=== PATIENT | male | born 1945 | race Caucasian/White ===

== ENCOUNTER 2020-10-22 17:02 | Emergency (ER) | payer MEDICARE, OTHER, SELFPAY ==
[2020-10-22 17:04] VITALS: BP 182/89; PULSE 69; RESP 15; TEMP 36.4; O2SAT 96; BMI 24.3
--- NOTE | 2020-10-22 20:18 | ED.WOUNDLAC ---
HPI - Wound/Laceration General Chief Complaint: Wound/Laceration Stated Complaint: wound on left hand/wrist from chainsaw Time Seen by Provider: 10/22/20 18:01 Source: patient Mode of arrival: Ambulatory Limitations: no limitations History of Present Illness HPI narrative: Patient is a 74-year-old right-handed male who presents with left hand laceration. He was using a chainsaw today chopping firewood when he cut his left hand. He is not on any anti-platelet or anticoagulation medication. He has a very small cut on the left palmar hand. He denies numbness tingling or weakness. Unsure of his last tetanus. Onset (ago): hour(s) Related Data Allergies Allergy/AdvReac Type Severity Reaction Status Date / Time Sulfa (Sulfonamide Allergy Intermediate RASH Verified 10/22/20 17:04 Antibiotics) Review of Systems Review of Systems Narrative: GENERAL: Denies chills,fever HEENT: Denies throat pain RESPIRATORY: Denies dyspnea, cough, wheezing CARDIOVASCULAR: Denies chest pain, palpitations GASTROINTESTINAL: Denies nausea, vomiting MUSCULOSKELETAL: Denies extremity pain, injury SKIN: See HPI NEUROLOGIC: Denies weakness, dizziness, headache, numbness 8 point review of systems is negative except for those stated above and HPI Patient History Medical History (Updated 10/22/20 @ 20:42 by Tina Garcia DO) Patient denies medical problems Social History Smoking Status: Unknown if ever smoked Smoking Status: Unknown if ever smoked alcohol intake frequency: holidays/special occasions only Substance Use Type: does not use Exam Initial Vital Signs Initial Vital Signs: Vital Signs Temperature 97.6 F 10/22/20 17:04 Pulse Rate 69 10/22/20 17:04 Respiratory Rate 15 10/22/20 17:04 Blood Pressure 182/89 H 10/22/20 17:04 Pulse Oximetry 96 10/22/20 17:04 GENERAL: Well-appearing, well-nourished and in no acute distress. CARDIOVASCULAR: peripheral pulses in tact, cap refill <2 sec RESPIRATORY: No respiratory distress, speaks in full sentences without difficulty EXTREMITIES: Normal range of motion, no clubbing or edema. Neurovascularly intact NEUROLOGICAL: Cranial nerves II through XII grossly intact. Normal gait and speech. SKIN: 2cm left palm hand laceration Procedures Laceration Repair Laceration 1: Site: hand Side (If applicable): left Size (cm): 2 Description: linear Depth: simple, single layer Local Anesthetic: lidocaine 1% Amount of anesthesia used (mL): 2 Pre-repair: wound explored and irrigated extensively Skin layer closed with: nylon Size (cm): 4-0 Number of sutures: 2 Course Orders Ordered: Discontinued Medications Diphtheria/Tetanus/Acell Pertussis (Tet,Diph,Pertuss(Acell),Vac/Pf 0.5 Ml Syringe) 0.5 ml IM .ONCE ONE Stop: 10/22/20 20:19 Last Admin: 10/22/20 20:22 Dose: 0.5 ml Documented by: ESTEFANÍA Lidocaine HCl (Lidocaine 1% (Pf)) 2 ml SUBCUT NOW ONE Stop: 10/22/20 20:19 Last Admin: 10/22/20 20:23 Dose: 2 ml Documented by: ESTEFANÍA Vital Signs Vital signs: Vital Signs - 8 hr 10/22/20 17:04 10/22/20 20:56 Temperature 97.6 F Pulse Rate 69 60 Respiratory Rate 15 20 Blood Pressure 182/89 H 201/98 H Pulse Oximetry 96 100 Discharge Plan Departure Patient Disposition: Home Clinical Impression: Laceration Instructions: DI for Laceration Repair Activity Restrictions/Additional Instructions: 1. Have your suture removed in 5-7 days, you may go to walk-in clinic, return to the ER or call your primary care physician. 2. No soaking in water including dishes, bathtubs, Lakes, swimming pools etc 3. Signs of infection include, but not limited to, increased redness, increased swelling, increased pain, fever and purulent drainage, if the symptoms should arise, you may need an antibiotic and you should have a reevaluation either by your primary care provider or by the emergency department. Referrals: Sea Herndon MD [Primary Care Provider] -
[2020-10-22] MEDS: TET,DIPH,PERTUSS(ACELL),VAC/PF 0.5 ML SYRINGE IM (20:22)
[2020-10-22] MEDS: LIDOCAINE 1% (PF) 2 ML SUBCUT (20:23)
[2020-10-22 20:56] VITALS: BP 201/98; PULSE 60; RESP 20; O2SAT 100
== END 2020-10-22 20:57 | disposition home or self-care (01) ==
PROVIDERS: Emergency Provider Emergency Medicine; Family Provider Internal Medicine; PCP Internal Medicine
DX: S61.412A Laceration without foreign body of left hand, initial encounter (principal); W29.3XXA Contact with powered garden and outdoor hand tools and machinery, initial encounter
CPT/HCPCS: 12001; 90471; 99283; 90715

== ENCOUNTER → 2020-11-18 08:59 | Outpatient (CLI) | payer MEDICARE, OTHER, SELFPAY ==
[2020-11-18 09:17] LABS: Bacteria Urine None Seen
[2020-11-18 09:40] LABS: Add Manual Diff / Slide Review NO; Basophils Absolute Auto 0 /uL (0-100); Basophils Percent Auto 0.6 % (0-2); Eosinophils Absolute Auto 200 /uL (0-450); Eosinophils Percent Auto 2.8 % (2-4); Hematocrit 42.2 % (41-53); Lymphocytes Absolute Auto 1400 /uL (1100-4500); Mean Corpuscular HGB Conc 33.2 % (30-36); Mean Corpuscular Hemoglobin 30.6 PG (26-34); Mean Corpuscular Volume 92.1 fL (80-100); Monocytes Absolute Auto 700 /uL (0-900); Monocytes Percent Auto 9.4 % (3-14); Neutrophils Absolute Auto 4800 /uL (1500-7000); Neutrophils Percent Auto 67.2 % (50-75); Platelet Count 234 X10^3/uL (150-400); Red Blood Cell Count 4.58 X10^6/uL (4.5-5.9); Red Cell Distribution Width 13.5 % (11.6-14.8); White Blood Cell Count 7.2 X10^3/uL (4.5-11.0)
[2020-11-18 09:46] LABS: Appearance Urine UA CLEAR; Bilirubin Urine UA NEGATIVE (NEGATIVE); Color Urine UA YELLOW; Glucose Urine UA NEGATIVE (Negative); Ketones Urine UA NEGATIVE (NEGATIVE); Leukocyte Esterase Urine UA NEGATIVE (NEGATIVE); Nitrite Urine UA NEGATIVE (Negative); Occult Blood Urine UA TRACE-INTACT (Negative); Protein Urine UA NEGATIVE (Negative); Specific Gravity Urine UA >=1.030 (1.000-1.035); Urobilinogen Urine UA 0.2 E.U./dL (0.2)
[2020-11-18 09:59] LABS: Culture Indicated Urine Cult Not Indicated; RBC Urine 0-1/HPF (0-5/HPF); Squamous Epithelial Cell Urine 0-1 /HPF (0-5/HPF); WBC Urine 0-1/HPF (0-5/HPF)
[2020-11-18 10:01] LABS: Cholesterol 184 mg/dL (140-199); HDL Cholesterol 51 mg/dL (40-60); LDL Cholesterol Calculated 122 mg/dL (<100); Triglycerides 54 mg/dL (35-150)
[2020-11-18 10:23] LABS: Erythrocyte Sedimentation Rate 4 MM/HR (0-15)
[2020-11-18 10:35] LABS: Prostate Specific Antigen Scrn 1.97 ng/mL (0.1-4.0)
[2020-11-18 16:21] LABS: BUN Creatinine Ratio 21.6 (6-22); Blood Urea Nitrogen 21 mg/dL (9-20); Estimated Glomerular Filt Rate > 60.0 mL/min (>60)
[2020-11-18 16:56] LABS: Alanine Aminotransferase 18 IU/L (<50); Albumin 4.1 g/dL (3.5-5.0); Albumin Globulin Ratio 1.3 (1.0-2.8); Alkaline Phosphatase 74 U/L (38-126); Aspartate Aminotransferase 32 IU/L (17-59); Bilirubin Total 0.4 mg/dL (0.2-1.3); Calcium 9.2 mg/dL (8.4-10.2); Carbon Dioxide 25 mmol/L (22-32); Chloride 107 mmol/L (98-107); Globulin 3.1 g/dL (1.7-4.1); Glucose 90 mg/dL (80-110); HEMOLYSIS < 15 (0-50); Sodium 140 mmol/L (137-145); Total Protein 7.2 g/dL (6.3-8.2)
== END ==
PROVIDERS: Family Provider Internal Medicine; PCP Internal Medicine; Referring Provider Internal Medicine; Visit Provider Internal Medicine
DX: R10.31 Right lower quadrant pain (principal); Z00.00 Encounter for general adult medical examination without abnormal findings; D48.5 Neoplasm of uncertain behavior of skin; E78.5 Hyperlipidemia, unspecified; Z12.5 Encounter for screening for malignant neoplasm of prostate
CPT/HCPCS: 36415; 80053; 80061; 81001; 85025; 85651; G0103

== ENCOUNTER → 2020-11-19 08:27 | Outpatient (CLI) | payer MEDICARE, OTHER, SELFPAY ==
--- NOTE | 2020-11-19 09:30 | DI.CT.S_ITS ---
PROCEDURE: CT ABDOMEN PELVIS W CON INDICATIONS: right lower quadrant abdominal pain TECHNIQUE: After the administration of oral and intravenous contrast, 5 mm thick sections acquired from the diaphragms to the symphysis. 5 mm thick coronal and sagittal reformats were performed. For radiation dose reduction, the following was used: automated exposure control, adjustment of mA and/or kV according to patient size. COMPARISON: [facility], CT, IVP (ABD & PEL WWO CONTRAST), 03/10/2016, 11:58. FINDINGS: Image quality: Excellent. ABDOMEN: Lung bases: Lung bases are clear. Heart size is normal. Solid organs: Liver is normal in size and enhancement. Gallbladder has been previously resected Biliary system is non-dilated. Pancreas enhances normally. Spleen is normal in size and enhancement. No adrenal nodules. The right kidney is normal in size and enhancement, without obstructive hydronephrosis but there is slight prominence of the right renal pelvis centrally, with an appearance of a normal anatomic variant extrarenal pelvis. Additionally, with rest SPECT to the prior CT scanning from 2016, there several immediate adjacent peripelvic cysts on the right. Prior left nephrectomy. No dilatation of the right ureter.. Peritoneum and bowel: Stomach, small bowel, and colon loops are normal in caliber and wall thickness. No free fluid or air. Nodes and vessels: No retroperitoneal or mesenteric adenopathy. Aorta and inferior vena cava are normal in caliber. Miscellaneous: No ventral hernias. PELVIS: Genitourinary: Bladder wall thickness is normal. Miscellaneous: No inguinal hernias or adenopathy. The cecum contains a combination of frothy internal content and possible colonic wall thickening versus is adherent stool. For example, see series 2, image 55. Wall thickening of the cecum in this area posteriorly conceivably could be present. Bones: No suspicious bony lesions. No vertebral body compression fractures. IMPRESSION: Prior left nephrectomy, previously documented in 2016. No recurrent mass lesion at the operative bed is seen. Right kidney shows a small extrarenal pelvis, and several immediate adjacent peripelvic cysts at the renal sinus fat as was the case on prior CT scanning. A definite source of right lower quadrant pain is not identified. Please note that at the cecum there is a combination of findings that disallows accurate assessment for presence or absence of neoplasm at the cecum in addition to stool content. Please correlate for whether the patient has had effective evaluation of the area of the cecum by colonoscopy. If not then screening colonoscopy may be warranted at this time. Dictated by: True Pearson M.D. on 11/19/2020 at 13:11 Approved by: True Pearson M.D. on 11/19/2020 at 13:23
== END ==
PROVIDERS: Family Provider Internal Medicine; PCP Internal Medicine; Referring Provider Internal Medicine; Visit Provider Internal Medicine
DX: R10.31 Right lower quadrant pain (principal); N28.1 Cyst of kidney, acquired; Z90.5 Acquired absence of kidney; Z90.49 Acquired absence of other specified parts of digestive tract
CPT/HCPCS: 74177; Q9967

== ENCOUNTER → 2021-03-17 09:36 | Outpatient (CLI) | payer MEDICARE, OTHER, SELFPAY ==
[2021-03-17 12:00] LABS: COVID19 -Nasal RAPID POSITIVE (Negative)
== END ==
PROVIDERS: Family Provider Internal Medicine; PCP Internal Medicine; Visit Provider Nurse Practitioner
DX: U07.1 COVID-19 (principal)
CPT/HCPCS: 87635

== ENCOUNTER → 2022-03-07 11:09 | Outpatient (CLI) | payer MEDICARE, OTHER, SELFPAY ==
--- NOTE | 2022-03-07 | DI.RAD.S_ITS ---
PROCEDURE: FL BARIUM SWALLOW INDICATIONS: Dysphagia, unspecified COMPARISON: None. FINDINGS: Function: At least mild dysmotility present with diminished amplitude of the primary peristaltic stripping wave, presence of tertiary contractions at the mid esophagus, incomplete clearance of barium and barium retropulsion. Gastroesophageal reflux was observed to at least the level of the mid esophagus, spontaneously and with water siphon maneuver. There is normal transit of a calibrated barium tablet through the esophagus into the stomach. Morphology: Air-contrast images demonstrate unremarkable mucosal morphology. Small sliding hiatal hernia intermittently visualized, up to approximately 3.5 cm. Possible Schatzki's ring. No evidence of a cricopharyngeal bar or Zenker's diverticulum on pharyngogram images. IMPRESSION: 1. Small sliding hiatal hernia. 2. Gastroesophageal reflux was observed during the exam. 3. Possible Schatzki's ring, at least 13 mm in diameter. 4. At least mild esophageal dysmotility. Dictated by: Shon Millan M.D. on 03/07/2022 at 12:03 Approved by: Shon Millan M.D. on 03/07/2022 at 12:08
== END ==
PROVIDERS: Family Provider Internal Medicine; PCP Internal Medicine; Referring Provider Internal Medicine; Visit Provider Internal Medicine
DX: R13.10 Dysphagia, unspecified (principal); K21.9 Gastro-esophageal reflux disease without esophagitis; K44.9 Diaphragmatic hernia without obstruction or gangrene; K22.4 Dyskinesia of esophagus
CPT/HCPCS: 74220

== ENCOUNTER → 2022-08-12 10:18 | Outpatient (CLI) | payer MEDICARE, OTHER, SELFPAY ==
--- NOTE | 2022-08-12 | DI.RAD.S_ITS ---
PROCEDURE: XR SHOULDER LT MIN 2V INDICATIONS: left shoulder pain TECHNIQUE: 3 views of the shoulder were acquired. COMPARISON: None. FINDINGS: Bones: No fractures or dislocations. No suspicious bony lesions. Visualized ribs appear intact. Soft tissues: No suspicious soft tissue calcifications. IMPRESSION: No evidence acute bony abnormality of the left shoulder. If clinical suspicion and/or symptoms persist, further assessment with repeat plain films, or advanced imaging (e.g., CT, MRI, or bone scan) may be helpful for further assessment. Dictated by: Mickey Hunt M.D. on 08/12/2022 at 17:28 Approved by: Mickey Hunt M.D. on 08/12/2022 at 17:28
== END ==
PROVIDERS: Family Provider Internal Medicine; PCP Internal Medicine; Referring Provider Physician Assistant; Visit Provider Physician Assistant
DX: M25.512 Pain in left shoulder (principal)
CPT/HCPCS: 73030

== ENCOUNTER → 2023-11-06 10:38 | Outpatient (CLI) | payer MEDICARE, OTHER, SELFPAY ==
--- NOTE | 2023-11-06 10:42 | DI.RAD.S_ITS ---
PROCEDURE: XR LUMBAR SPINE 2-3V INDICATIONS: BACK PAIN TECHNIQUE: 3 views of the lumbar spine were acquired. COMPARISON: None. FINDINGS: Bones: 5 [id number] vertebrae are present. There is normal bony alignment. Multilevel degenerative disc and foraminal narrowing most severe at L5-S1. No vertebral body compression fractures. No suspicious bony lesions. Soft tissues: Overlying bowel gas pattern is normal. No suspicious soft tissue calcifications. IMPRESSION: No acute bony abnormality. Dictated by: Adri Torres M.D. on 11/06/2023 at 17:04 Approved by: Adri Torres M.D. on 11/06/2023 at 17:04
--- NOTE | 2023-11-06 10:42 | DI.RAD.S_ITS ---
PROCEDURE: XR RIBS LT 2V INDICATIONS: CHEST PAIN TECHNIQUE: 3 views of the ribs were acquired. COMPARISON: None. FINDINGS: Surgical changes and devices: Cholecystectomy clips. Bones and chest wall: No fractures or dislocations. No suspicious bony lesions. Overlying soft tissues appear unremarkable. Lungs and pleura: The visualized lung appears clear. No pleural effusions or pneumothorax are visible. IMPRESSION: No visualized acute fracture or dislocation. However, if clinical concern and/or pain persist, short interval imaging followup in 7-10 days is recommended, as occult injury cannot be definitively excluded. Dictated by: Adri Torres M.D. on 11/06/2023 at 17:04 Approved by: Adri Torres M.D. on 11/06/2023 at 17:04
== END ==
LOC: RAD 10:41
PROVIDERS: Family Provider Internal Medicine; PCP Physician Assistant; Referring Provider Internal Medicine; Visit Provider Internal Medicine
DX: R07.89 Other chest pain (principal); M48.07 Spinal stenosis, lumbosacral region; M54.50 Low back pain, unspecified
CPT/HCPCS: 71100; 72100

== ENCOUNTER 2024-12-23 18:45 | Emergency (ER) | payer MEDICARE, OTHER, SELFPAY ==
[2024-12-23 19:06] VITALS: BP 176/74; PULSE 59; RESP 18; TEMP 36.3; O2SAT 97; BMI 24.3
[2024-12-24] VITALS (7 sets, daily range): BP systolic 188–206; BP diastolic 83–94; PULSE 47–68; RESP 18; O2SAT 97–99
--- NOTE | 2024-12-24 00:59 | DI.CT.S_ITS ---
PROCEDURE: CT HEAD/BRAIN WO CON INDICATIONS: head trauma, age 80s TECHNIQUE: Noncontrast 4.5 mm thick angled axial sections acquired from the foramen magnum to the vertex, with coronal and sagittal reformats. For radiation dose reduction, the following was used: automated exposure control, adjustment of mA and/or kV according to patient size. COMPARISON: None. FINDINGS: Image quality: Diagnostic. CSF spaces: Basal cisterns are patent. No extra-axial fluid collections. The ventricles are symmetric in size and shape. Brain: No intracranial bleeds or mass effect. There is cerebral volume loss, with resultant ventricular and sulcal prominence. There are periventricular and deep white matter chronic small vessel ischemic changes. There is intracranial internal carotid artery atherosclerosis. Skull and face: Calvarium and visualized facial bones appear intact, without suspicious lesions. Sinuses: Partial opacification of several ethmoid air cells. Probable maxillary sinus antrostomies. Other sinuses and mastoid cavities are aerated. IMPRESSION: 1. No CT evidence of acute intracranial trauma. 2. No significant soft tissue injury or underlying fracture. Dictated by: Tana Rankin M.D. on 12/24/2024 at 1:38 Approved by: Tana Rankin M.D. on 12/24/2024 at 1:40
--- NOTE | 2024-12-24 01:00 | PC.NURSE ---
Pt reports medical history of a hiatal hernia and taking omeprazole. Provider Taye made aware.
--- NOTE | 2024-12-24 01:14 | ED_ITS ---
HPI - Head Injury General Chief complaint: Head Injury Stated complaint: got hit in the head with a board Time Seen by Provider: 12/24/24 00:56 Source: patient Mode of arrival: Ambulatory History of Present Illness HPI Narrative: 79-year-old male was struck earlier this evening by overhead 2 x 4 piece of wood 8 ft then length, causing laceration to the right top of his head. No loss of consciousness. Some headache. He does not take blood thinner medications. Denies neck pain. No weakness or numbness to face arm or leg. Last tetanus shot more than 5 years ago. Related Data Allergies Allergy/AdvReac Type Severity Reaction Status Date / Time Sulfa (Sulfonamide Allergy Intermediate RASH Verified 12/23/24 19:06 Antibiotics) Patient History Medical History (Updated 12/24/24 @ 03:26 by Shyam Kothari MD) Patient denies medical problems Social History Smoking Status: Never smoker Smoking Status: Never smoker alcohol intake frequency: holidays/special occasions only Exam Narrative Exam Narrative: GENERAL: Well-developed patient, in mild distress. HEAD: Scalp laceration right of vertex a few cm into the forehead scalp line, curvilinear 1.5 cm length EYES: Pupils equal round and reactive. Extraocular motions intact. No scleral icterus. No injection or drainage. ENT: Nose without bleeding, purulent drainage. Throat without erythema, tonsillar hypertrophy or exudate. Airway patent. NECK: Trachea midline. Non tender CARDIOVASCULAR: Regular rate and rhythm without murmurs, gallops, or rubs. RESPIRATORY: Clear to auscultation. Breath sounds equal bilaterally. No wheezes, rales, or rhonchi. GASTROINTESTINAL: Abdomen soft, non-tender, nondistended. EXTREMITIES: No edema or joint tenderness. BACK: Nontender without deformity or crepitance. No flank tenderness. NEURO: AOx3. Motor functions grossly nonfocal SKIN: No rash or erythema of visible areas Initial Vital Signs Initial Vital Signs: Vital Signs Temperature 97.4 F L 12/23/24 19:06 Pulse Rate 59 L 12/23/24 19:06 Respiratory Rate 18 12/23/24 19:06 Blood Pressure 176/74 H 12/23/24 19:06 Pulse Oximetry 97 12/23/24 19:06 Oxygen Delivery Method Room Air 12/23/24 19:06 Procedures Laceration Repair Laceration 1: Time of procedure: 03:23 Site: scalp Side (If applicable): right Size (cm): 1.5 Description: linear (Curvilinear) Depth: simple, single layer Local Anesthetic: other anesthetic (Topical lidocaine gel) Pre-repair: irrigated extensively Skin layer closed with: billie Number of sutures: 3 Course Orders Ordered: ED Orders 12/24/24 00:59 CT head/brain wo con Stat Discontinued Medications Bacitracin (Bacitracin Oint 0.9 Gm Pckt) 1 applic TOP NOW ONE Stop: 12/24/24 03:24 Last Admin: 12/24/24 03:26 Dose: 1 applic Documented By: ASHLEY Diphtheria/Tetanus/Acell Pertussis (Tet,Diph,Pertuss(Acell),Vac/Pf 0.5 Ml Syringe) 0.5 ml IM .ONCE ONE Stop: 12/24/24 01:24 Last Admin: 12/24/24 01:46 Dose: 0.5 ml Documented By: ASHLEY Lidocaine HCl (Lidocaine 2% (Glydo) 6 Ml Gel) 6 ml TOP NOW ONE Stop: 12/24/24 01:41 Last Admin: 12/24/24 01:45 Dose: 6 ml Documented By: ASHLEY Vital Signs Vital signs: Vital Signs - 8 hr 12/24/24 00:36 12/24/24 00:36 12/24/24 00:39 Pulse Rate 56 L 47 L Respiratory Rate Blood Pressure 205/94 H Pulse Oximetry 97 99 Oxygen Delivery Method 12/24/24 00:39 12/24/24 00:50 12/24/24 00:50 Pulse Rate 49 L Respiratory Rate Blood Pressure 192/91 H 206/92 H Pulse Oximetry 98 Oxygen Delivery Method 12/24/24 00:52 12/24/24 00:52 12/24/24 01:00 Pulse Rate 53 L Respiratory Rate Blood Pressure 188/83 H 195/94 H Pulse Oximetry 99 Oxygen Delivery Method Room Air 12/24/24 01:00 12/24/24 01:30 12/24/24 03:34 Pulse Rate 47 L 48 L 68 Respiratory Rate 18 Blood Pressure 189/89 H Pulse Oximetry 99 97 97 Oxygen Delivery Method Room Air Room Air MDM - Head Injury Imaging Data CT scan - head: Radiologist's Impression: Close Head CT (Signed) Tana Rankin - 12/24/24 Launch?[address] [place] [address] CT Scan Report Signed Patient: Nagi De Anda MR#: [id number] : 1945 Acct:[id number] Age/Sex: 79 / M Date of Service: 12/24/24 Loc: ED Accession Number: [id number] Procedure: CT head/brain wo con Ordering Provider: Shyam Kothari MD PROCEDURE: CT HEAD/BRAIN WO CON INDICATIONS: head trauma, age 80s TECHNIQUE: Noncontrast 4.5 mm thick angled axial sections acquired from the foramen magnum to the vertex, with coronal and sagittal reformats. For radiation dose reduction, the following was used: automated exposure control, adjustment of mA and/or kV according to patient size. COMPARISON: None. FINDINGS: Image quality: Diagnostic. CSF spaces: Basal cisterns are patent. No extra-axial fluid collections. The ventricles are symmetric in size and shape. Brain: No intracranial bleeds or mass effect. There is cerebral volume loss, with resultant ventricular and sulcal prominence. There are periventricular and deep white matter chronic small vessel ischemic changes. There is intracranial internal carotid artery atherosclerosis. Skull and face: Calvarium and visualized facial bones appear intact, without suspicious lesions. Sinuses: Partial opacification of several ethmoid air cells. Probable maxillary sinus antrostomies. Other sinuses and mastoid cavities are aerated. IMPRESSION: 1. No CT evidence of acute intracranial trauma. 2. No significant soft tissue injury or underlying fracture. Dictated by: Tana Rankin M.D. on 12/24/2024 at 1:38 Approved by: Tana Rankin M.D. on 12/24/2024 at 1:40 [facility] Narrative Medical decision making narrative: 79-year-old male with right anterior scalp laceration from overhead 2 x 4 piece of wood striking him top of the head. CT head no acute changes. Last tetanus greater than 5 years ago, Tdap given. Local Lat gel then irrigation. Primary closure scalp laceration with stapling, see procedure note. Discharged home with family. Discharge Plan Departure Patient Disposition: Home Clinical Impression: Laceration of scalp, Contusion of scalp Activity Restrictions/Additional Instructions: 8 ft 2 x 4 piece of wood fell onto top of head, causing laceration. No loss of consciousness. CT head study showed no brain injuries or skull fracture changes. Last tetanus was long ago, Tdap tetanus shot was given. Local wound numbing and irrigation. Closure by billie x3. Consider wound check with your regular doctor in the next couple of days. Staple removal in the clinic with a particular special kind of staple remover device in 7 days. Return earlier if any change worsening symptoms or any concerns prior. Referrals: Cesilia Serrato PA-C [Primary Care Provider, Medical] Stand Alone Forms: Patient Portal/API
[2024-12-24] MEDS: LIDOCAINE 2% (GLYDO) 6 ML GEL TOP (01:45)
[2024-12-24] MEDS: TET,DIPH,PERTUSS(ACELL),VAC/PF 0.5 ML SYRINGE IM (01:46)
--- NOTE | 2024-12-24 02:56 | PC.NURSE ---
Wound cleansed with NS
[2024-12-24] MEDS: BACITRACIN OINT 0.9 GM PCKT 1 APPLIC TOP (03:26)
== END 2024-12-24 03:37 | disposition home or self-care (01) ==
PROVIDERS: Emergency Provider Emergency Medicine; Family Provider Internal Medicine; PCP Physician Assistant
DX: S01.01XA Laceration without foreign body of scalp, initial encounter (principal); S00.03XA Contusion of scalp, initial encounter; W22.8XXA Striking against or struck by other objects, initial encounter; Z23 Encounter for immunization
CPT/HCPCS: 12001; 70450; 90471; 99283; 99284; 90715